=== PATIENT | female | born 1995 | race Caucasian/White ===

== ENCOUNTER 2020-12-08 13:29 | Inpatient (IN) | payer BC ==
[2020-12-08] MEDS ORDERED: Sodium Chloride 0.9% 10 ML Syringe FLUSH PRN (13:44)
[2020-12-08] MEDS ORDERED: Nalbuphine 10 MG/1 ML Vial IVPUSH PRN (13:44)
[2020-12-08] MEDS ORDERED: Oxytocin/Lactated Ringers 10 UNIT/1,000 ML BAG IV SCH ×2 (13:45)
[2020-12-08] MEDS: Lactated Ringers 1,000 ML IV SCH ×2 (14:23→17:38)
[2020-12-08] MEDS ORDERED: ePHEDrine 50 MG/ML SDV IVPUSH PRN (14:47)
[2020-12-08] MEDS ORDERED: Ondansetron 4 MG/2 ML SDV IVPUSH PRN (14:47)
[2020-12-08] MEDS ORDERED: fentaNYL 100 MCG/2 ML SDV EPIDUR PRN (14:47)
--- NOTE | 2020-12-08 14:50 | PCM.PREANE ---
Preanesthetic Assessment - Procedure Proposed Procedure: Epidural - Anesthesia/Transfusion/Family Hx Anesthesia History: Prior Anesthesia Without Reaction Family History of Anesthesia Reaction: No Transfusion History: No Prior Transfusion(s) Intubation History: Unknown - Review of Systems General: No Symptoms Pulmonary: No Symptoms Cardiovascular: No Symptoms Gastrointestinal: No Symptoms (GERD) Neurological: No Symptoms, Numbness (CTS bilaterally with /greater on the right.) Other: Reports: None - Physical Assessment NPO Status Date: 12/08/20 NPO Status Time: 09:30 Vital Signs: Last Vital Signs Temp 37.7 C 12/08/20 14:24 Pulse Resp 16 12/08/20 14:24 BP 114/63 12/08/20 14:24 Pulse Ox 99 12/08/20 14:24 Height: 1.63 m Weight: 92.079 kg ASA Class: 3 Mental Status: Alert & Oriented x3 Airway Class: Mallampati = 2 Dentition: Reports: Normal Dentition, Caries Thyro-Mental Finger Breadths: 3 Mouth Opening Finger Breadths: 3 ROM/Head Extension: Full Lungs: Clear to Auscultation, Normal Respiratory Effort Cardiovascular: Regular Rate, Regular Rhythm, No Murmurs - Lab Values: Laboratory Last Values WBC 13.21 K/mm3 (3.98-10.04) H 12/08/20 14:18 RBC 3.97 M/mm3 (3.98-5.22) L 12/08/20 14:18 Hgb 12.0 gm/dl (11.2-15.7) 12/08/20 14:18 Hct 36.4 % (34.1-44.9) 12/08/20 14:18 MCV 91.7 fl (79.4-94.8) 12/08/20 14:18 MCH 30.2 pg (25.6-32.2) 12/08/20 14:18 MCHC 33.0 g/dl (32.2-35.5) 12/08/20 14:18 RDW Std Deviation 43.0 fL (36.4-46.3) 12/08/20 14:18 Plt Count 224 K/mm3 (182-369) 12/08/20 14:18 MPV 11.1 fl (9.4-12.3) 12/08/20 14:18 Neut % (Auto) 77.2 % (34.0-71.1) H 12/08/20 14:18 Lymph % (Auto) 15.0 % (19.3-51.7) L 12/08/20 14:18 [place] % (Auto) 7.0 % (4.7-12.5) 12/08/20 14:18 Eos % (Auto) 0.2 (0.7-5.8) L 12/08/20 14:18 Baso % (Auto) 0.1 % (0.1-1.2) 12/08/20 14:18 Neut # (Auto) 10.20 K/mm3 (1.56-6.13) H 12/08/20 14:18 Lymph # (Auto) 1.98 K/mm3 (1.18-3.74) 12/08/20 14:18 [place] # (Auto) 0.93 K/mm3 (0.24-0.36) H 12/08/20 14:18 Eos # (Auto) 0.03 K/mm3 (0.04-0.36) L 12/08/20 14:18 Baso # (Auto) 0.01 K/mm3 (0.01-0.08) 12/08/20 14:18 Above labs reviewed and noted and within acceptable ranges to proceed with scheduled procedure. - Allergies Allergies/Adverse Reactions: Allergies Allergy/AdvReac Type Severity Reaction Status Date / Time No Known Allergies Allergy Verified 12/08/20 13:43 - Anesthesia Plan Pre-Op Medication Ordered: None - Acknowledgements Anesthesia Type Planned: Epidural Pt an Appropriate Candidate for the Planned Anesthesia: Yes Alternatives and Risks of Anesthesia Discussed w Pt/Guardian: Yes Pt/Guardian Understands and Agrees with Anesthesia Plan: Yes PreAnesthesia Questionnaire - HOME MEDS Home Medications: Home Meds Pnv No.95/Ferrous Fum/Folic AC [ Caplet] 1 tab PO DAILY 12/08/20 [History] - CURRENT (IN HOUSE) MEDS Current Meds: Current Medications Oxytocin/Lactated Ringer's (Pitocin In Lr 10 Units/1,000 Ml) 10 unit in 1,000 mls @ 12 mls/hr IV TITRATE SADIA; Protocol Oxytocin/Lactated Ringer's (Pitocin In Lr 10 Units/1,000 Ml) 10 unit in 1,000 mls @ 500 mls/hr IV .CONTINUOUS SADIA Lactated Ringer's (Ringers, Lactated) 1,000 mls @ 100 mls/hr IV ASDIRECTED SADIA Last Admin: 12/08/20 14:23 Dose: 100 mls/hr Documented by: Lidocaine HCl (Lidocaine 1% 50 Ml Mdv) 50 ml INJECT ONETIME ONE Stop: 12/08/20 18:01 Nalbuphine HCl (Nalbuphine 10 Mg/1 Ml Vial) 10 mg IVPUSH Q2H PRN PRN Reason: Pain Sodium Chloride (Sodium Chloride 0.9% 10 Ml Syringe) 10 ml FLUSH ASDIRECTED PRN PRN Reason: Keep Vein Open
[2020-12-08] MEDS ORDERED: Bupivacaine/fentaNYL/NS 100 ML Bag EPIDUR SCH (15:00)
--- NOTE | 2020-12-08 16:57 | PCM.LDHP ---
L&D History of Present Illness - General Date of Service: 12/08/20 Admit Problem/Dx: Patient Status Order with Admit Dx/Problem 12/08/20 13:44 Patient Status [ADT] Routine Admission Diagnosis/Problem Admission Diagnosis/Problem Source of Information: Patient History Limitations: Reports: No Limitations - History of Present Illness Introduction:: Patient is a 24 y/o at 39 6/7 wks. Patient had membranes swept in clinic earlier today. Several hours after noted LOF and returned to clinic where speculum exam did show pooling of fluid. Currently has been on L&D for a few hours and was agreeable to pitocin initiation given no significant contractions. Doing well otherwise - Related Data Allergies/Adverse Reactions: Allergies Allergy/AdvReac Type Severity Reaction Status Date / Time No Known Allergies Allergy Verified 12/08/20 13:43 Home Medications: Home Meds Pnv No.95/Ferrous Fum/Folic AC [ Caplet] 1 tab PO DAILY 12/08/20 [History] Past Medical History [employer] History: Reports: : 2 Para: 1 LMP (Approximate): - Infectious Disease History Infectious Disease History: Reports: C-Difficile Other Infectious Disease History: states she had C-DIFF early in - Past Surgical History HEENT Surgical History: Reports: Oral Surgery, Tonsillectomy Social & Family History - Family History Family Medical History: No Pertinent Family History - Tobacco Use Tobacco Use Status *Q: Former Tobacco User Years of Tobacco use: 5 Packs/Tins Daily: 0.5 Used Tobacco, but Quit: Yes Month/Year Tobacco Last Used: 2020 Second Hand Smoke Exposure: No - Caffeine Use Caffeine Use: Reports: None - Alcohol Use Alcohol Use History: No - Recreational Drug Use Recreational Drug Use: No H&P Review of Systems - Review of Systems: Review Of Systems: See Below General: Reports: No Symptoms Pulmonary: Reports: No Symptoms Cardiovascular: Reports: No Symptoms Gastrointestinal: Reports: No Symptoms Genitourinary: Reports: No Symptoms Musculoskeletal: Reports: No Symptoms Psychiatric: Reports: No Symptoms Neurological: Reports: No Symptoms Hematologic/Lymphatic: Reports: No Symptoms L&D Exam - Exam Exam: See Below - Vital Signs Vital Signs: Last Vital Signs Temp 37.7 C 12/08/20 14:24 Pulse Resp 16 12/08/20 14:24 BP 114/63 12/08/20 14:24 Pulse Ox 99 12/08/20 14:24 Weight: 92.079 kg - OB Specific Contraction Intensity: Mild Movement: Active Heart Tones: Present Heart Tones per Min: 120 Heart Rate (FHR) Variability: Moderate (6-25 bpm) Presentation: Vertex - Yadav Score Yadav Score Cervix Position: Midposition Yadav Score Consistency: Soft Yadav Score Effacement: >80% Yadav Score Dilation: 3-4 cm Yadav Score Infant's Station: -2 Yadav Score Total: 9 - Exam General: Alert, Oriented, Cooperative Lungs: Clear to Auscultation, Normal Respiratory Effort Cardiovascular: Regular Rate, Regular Rhythm GI/Abdominal Exam: Soft, Non-Tender Genitourinary: Normal external exam Extremities: Normal Inspection Skin: Warm, Dry, Intact - Patient Data Lab Results Last 24 hrs: Laboratory Results - last 24 hr 12/08/20 12/08/20 12/08/20 Range/Units 14:05 14:18 14:18 WBC 13.21 H (3.98-10.04) K/mm3 RBC 3.97 L (3.98-5.22) M/mm3 Hgb 12.0 (11.2-15.7) gm/dl Hct 36.4 (34.1-44.9) % MCV 91.7 (79.4-94.8) fl MCH 30.2 (25.6-32.2) pg MCHC 33.0 (32.2-35.5) g/dl RDW Std Deviation 43.0 (36.4-46.3) fL Plt Count 224 (182-369) K/mm3 MPV 11.1 (9.4-12.3) fl Neut % (Auto) 77.2 H (34.0-71.1) % Lymph % (Auto) 15.0 L (19.3-51.7) % [place] % (Auto) 7.0 (4.7-12.5) % Eos % (Auto) 0.2 L (0.7-5.8) Baso % (Auto) 0.1 (0.1-1.2) % Neut # (Auto) 10.20 H (1.56-6.13) K/mm3 Lymph # (Auto) 1.98 (1.18-3.74) K/mm3 [place] # (Auto) 0.93 H (0.24-0.36) K/mm3 Eos # (Auto) 0.03 L (0.04-0.36) K/mm3 Baso # (Auto) 0.01 (0.01-0.08) K/mm3 SARS-CoV-2 RNA (DAVI) Negative (NEGATIVE) Blood Type A POSITIVE Gel Antibody Screen Negative Result Diagrams: 12/08/20 14:18 - Problem List (1) 39 weeks gestation of SNOMED Code(s): 30365162 ICD Code: Z3A.39 - 39 WEEKS GESTATION OF Status: Acute Current Visit: Yes Problem List Initiated/Reviewed/Updated: Yes Orders Last 24hrs: Active Orders 24 hr Category Date Time Status Patient Status [ADT] Routine ADT 12/08/20 13:44 Active Activity as Tolerated [RC] PFP Care 12/08/20 13:44 Active Communication Order [RC] ASDIRECTED Care 12/08/20 13:44 Active Heart Tones [RC] ASDIRECTED Care 12/08/20 13:45 Active Notify Provider [RC] ASDIRECTED Care 12/08/20 14:47 Active Notify Provider [RC] PFP Care 12/08/20 13:44 Active Notify Provider [RC] PRN Care 12/08/20 13:44 Active Oxygen Therapy [RC] ASDIRECTED Care 12/08/20 14:47 Active Peripheral IV Care [RC] . DIRECTED Care 12/08/20 13:45 Active Pulse Oximetry [RC] ASDIRECTED Care 12/08/20 14:47 Active Pump Management, Intrathecal [RC] ASDIRECTED Care 12/08/20 13:46 Active Urinary Catheter Assessment [RC] ASDIRECTED Care 12/08/20 13:44 Active Vital Signs [RC] PER UNIT ROUTINE Care 12/08/20 13:44 Active Regular Diet [DIET] Diet 12/08/20 Lunch Active RAPID PLASMA REAGIN,RPR [CHEM] Routine Lab 12/08/20 14:18 Received Bupivacaine/fentaNYL/NS [fentaNYL/Bupivacaine/NS 2 MCG- Med 12/08/20 15:00 Active 0.125% 100 ML] 100 ml EPIDUR ASDIRECTED Lactated Ringers [Ringers, Lactated] 1,000 ml Med 12/08/20 13:45 Active IV ASDIRECTED Lidocaine 1% [Xylocaine 1%] Med 12/08/20 18:00 Once 50 ml INJECT ONETIME ONE Nalbuphine [Nubain] Med 12/08/20 13:44 Active 10 mg IVPUSH Q2H PRN Ondansetron [Zofran] Med 12/08/20 14:47 Active 4 mg IVPUSH ONETIME PRN Oxytocin/Lactated Ringers [Pitocin in LR 10 Units/1,000 Med 12/08/20 13:45 Active ML] 10 unit in 1,000 ml IV .CONTINUOUS Oxytocin/Lactated Ringers [Pitocin in LR 10 Units/1,000 Med 12/08/20 13:45 Active ML] 10 unit in 1,000 ml IV TITRATE Phenylephrine HCl In 0.9% NaCl [Phenylephrine 1 MG/10 Med 12/08/20 14:47 Active ML-NS] 0.1 mg IVPUSH Q10M PRN Sodium Chloride 0.9% [Saline Flush] Med 12/08/20 13:44 Active 10 ml FLUSH ASDIRECTED PRN ePHEDrine [ePHEDrine sulfate] Med 12/08/20 14:47 Active 5 mg IVPUSH ASDIRECTED PRN fentaNYL [Sublimaze] Med 12/08/20 14:47 Active 100 mcg EPIDUR Q3H PRN Electronic Heart Tones Ext w TOCO [WOMSER] Oth 12/08/20 13:44 Ordered Routine Electronic Heart Tones Internal [WOMSER] Per Unit Oth 12/08/20 13:44 Ordered Routine Peripheral IV Insertion Adult [OM.PC] Routine Oth 12/08/20 13:44 Ordered Resuscitation Status Routine Resus Stat 12/08/20 13:44 Ordered Medication Orders Ephedrine Sulfate (Ephedrine 50 Mg/Ml Sdv) 5 mg IVPUSH ASDIRECTED PRN PRN Reason: Hypotension Fentanyl (Fentanyl 100 Mcg/2 Ml Sdv) 100 mcg EPIDUR Q3H PRN PRN Reason: Pain Fentanyl/Bupivacaine HCl (Bupivacaine/Fentanyl/Ns 100 Ml Bag) 100 ml EPIDUR ASDIRECTED SADIA Oxytocin/Lactated Ringer's (Pitocin In Lr 10 Units/1,000 Ml) 10 unit in 1,000 mls @ 12 mls/hr IV TITRATE SADIA; Protocol Last Titration: 12/08/20 16:25 Dose: 4 munits/min, 24 mls/hr Documented by: Admin: 12/08/20 14:49 Dose: 2 munits/min, 12 mls/hr Documented by: PEDRO Oxytocin/Lactated Ringer's (Pitocin In Lr 10 Units/1,000 Ml) 10 unit in 1,000 mls @ 500 mls/hr IV .CONTINUOUS [facility] Lactated Ringer's (Ringers, Lactated) 1,000 mls @ 100 mls/hr IV ASDIRECTED [facility] Last Admin: 12/08/20 14:23 Dose: 100 mls/hr Documented by: PEDRO Lidocaine HCl (Lidocaine 1% 50 Ml Mdv) 50 ml INJECT ONETIME ONE Stop: 12/08/20 18:01 Miscellaneous Medication (Phenylephrine Hcl In 0.9% Nacl 1 Mg/10 Ml Syringe) 0.1 mg IVPUSH Q10M PRN PRN Reason: Hypotension Nalbuphine HCl (Nalbuphine 10 Mg/1 Ml Vial) 10 mg IVPUSH Q2H PRN PRN Reason: Pain Ondansetron HCl (Ondansetron 4 Mg/2 Ml Sdv) 4 mg IVPUSH ONETIME PRN PRN Reason: Nausea/Vomiting Sodium Chloride (Sodium Chloride 0.9% 10 Ml Syringe) 10 ml FLUSH ASDIRECTED PRN PRN Reason: Keep Vein Open Assessment/Plan Comment:: * Labs previously done * On pitocin for augmentation, Rupture of forebag done * GBS negative * Pain management per patient preference * anticipate
[2020-12-08] MEDS ORDERED: Lidocaine 1% 50 ML MDV INJECT ONE (18:00)
--- NOTE | 2020-12-08 19:53 | PCM.DEL ---
L & D Note - General Info Date of Service: 12/08/20 - Delivery Note Labor: Augmented by Oxytocin Cervical Ripening Method: Oxytocin Delivery Outcome: Livebirth Infant Delivery Method: Spontaneous Vaginal Delivery-Single Infant Delivery Mode: Spontaneous Presentation: Left Occiput Anterior (FARHAN) Nuchal Cord: None Anesthesia Type: None Amniotic Fluid Description: Clear Episiotomy Type: None Laceration: None Placenta: Intact, Spontaneous Cord: 3 Vessels Estimated Blood Loss: 100 : Bulb Syringe, Stimulated, Warmed, [place] Used, Warmer Used Delivery Comments (Free Text/Narrative):: Patient found to be complete and began pushing. With maternal pushing effort head delivered from FARHAN presentation. No nuchal cord present. With gentle downward traction the shoulders and body delivered. placed on maternal abdomen. Cord clamped and cut. Cord blood obtained. Placenta allowed time to separate and expelled intact. Inspection of perineum showed no lacerations - General Info Date of Service: 12/08/20 - Patient Data Vitals - Most Recent: Last Vital Signs Temp 37.7 C 12/08/20 14:24 Pulse Resp 16 12/08/20 14:24 BP 114/63 12/08/20 14:24 Pulse Ox 99 12/08/20 14:24 Weight - Most Recent: 92.079 kg - Problem List & Annotations (1) Vaginal delivery SNOMED Code(s): 058857994 Code(s): O80 - ENCOUNTER FOR FULL-TERM UNCOMPLICATED DELIVERY Status: Acute Current Visit: Yes (2) 39 weeks gestation of SNOMED Code(s): 14761618 Code(s): Z3A.39 - 39 WEEKS GESTATION OF Status: Acute Current Visit: Yes - Problem List Review Problem List Initiated/Reviewed/Updated: Yes - My Orders Last 24 Hours: My Active Orders 12/08/20 Lunch Regular Diet [DIET] 12/08/20 13:44 Patient Status [ADT] Routine Activity as Tolerated [RC] PFP Communication Order [RC] ASDIRECTED Notify Provider [RC] PFP Notify Provider [RC] PRN Urinary Catheter Assessment [RC] ASDIRECTED Vital Signs [RC] PER UNIT ROUTINE Nalbuphine [Nubain] 10 mg IVPUSH Q2H PRN Sodium Chloride 0.9% [Saline Flush] 10 ml FLUSH ASDIRECTED PRN Electronic Heart Tones Ext w TOCO [WOMSER] Routine Electronic Heart Tones Internal [WOMSER] Per Unit Routine Peripheral IV Insertion Adult [OM.PC] Routine Resuscitation Status Routine 12/08/20 13:45 Heart Tones [RC] ASDIRECTED Peripheral IV Care [RC] . DIRECTED Lactated Ringers [Ringers, Lactated] 1,000 ml IV ASDIRECTED Oxytocin/Lactated Ringers [Pitocin in LR 10 Units/1,000 ML] 10 unit in 1,000 ml IV .CONTINUOUS Oxytocin/Lactated Ringers [Pitocin in LR 10 Units/1,000 ML] 10 unit in 1,000 ml IV TITRATE 12/08/20 13:46 Pump Management, Intrathecal [RC] ASDIRECTED 12/08/20 14:18 RAPID PLASMA REAGIN,RPR [CHEM] Routine - Assessment Assessment:: PPD#0 - Plan Plan:: * Routine cares * Breast feeding * Discharge home in 1-2 days
[2020-12-08] MEDS ORDERED: Ibuprofen 600 MG Tab PO PRN (20:18)
[2020-12-08] MEDS ORDERED: Witch Hazel Medicated Pads 40/Jar TOP PRN (20:18)
[2020-12-08] MEDS ORDERED: Benzocaine/Menthol 20%-0.5% Spray 78 GM Cannister TOP PRN (20:18)
[2020-12-08] MEDS ORDERED: Docusate Sodium 100 MG Cap PO PRN (20:18)
[2020-12-08] MEDS ORDERED: Acetaminophen 325 MG Tab PO PRN (20:18)
--- NOTE | 2020-12-09 07:15 | PCM.PNPP ---
- General Info Date of Service: 12/09/20 Functional Status: Reports: Pain Controlled, Tolerating Diet, Ambulating, Urinating - Review of Systems General: Reports: No Symptoms Pulmonary: Reports: No Symptoms Cardiovascular: Reports: No Symptoms Gastrointestinal: Reports: No Symptoms Genitourinary: Reports: No Symptoms Musculoskeletal: Reports: No Symptoms - General Info Date of Service: 12/09/20 - Patient Data Vital Signs - Most Recent: Last Vital Signs Temp 36.2 C 12/09/20 01:08 Pulse 89 12/09/20 01:08 Resp 14 12/09/20 01:08 BP 118/97 H 12/09/20 01:08 Pulse Ox 95 12/09/20 01:08 Weight - Most Recent: 92.079 kg I&O - Last 24 Hours: Intake & Output 12/08/20 12/09/20 12/09/20 22:59 06:59 14:59 Intake Total 2500 Balance 2500 Lab Results - Last 24 Hours: Laboratory Results - last 24 hr 12/08/20 12/08/20 12/08/20 Range/Units 14:05 14:18 14:18 WBC 13.21 H (3.98-10.04) K/mm3 RBC 3.97 L (3.98-5.22) M/mm3 Hgb 12.0 (11.2-15.7) gm/dl Hct 36.4 (34.1-44.9) % MCV 91.7 (79.4-94.8) fl MCH 30.2 (25.6-32.2) pg MCHC 33.0 (32.2-35.5) g/dl RDW Std Deviation 43.0 (36.4-46.3) fL Plt Count 224 (182-369) K/mm3 MPV 11.1 (9.4-12.3) fl Neut % (Auto) 77.2 H (34.0-71.1) % Lymph % (Auto) 15.0 L (19.3-51.7) % [place] % (Auto) 7.0 (4.7-12.5) % Eos % (Auto) 0.2 L (0.7-5.8) Baso % (Auto) 0.1 (0.1-1.2) % Neut # (Auto) 10.20 H (1.56-6.13) K/mm3 Lymph # (Auto) 1.98 (1.18-3.74) K/mm3 [place] # (Auto) 0.93 H (0.24-0.36) K/mm3 Eos # (Auto) 0.03 L (0.04-0.36) K/mm3 Baso # (Auto) 0.01 (0.01-0.08) K/mm3 RPR Non-reactive (NONREACTIVE) SARS-CoV-2 RNA (DAVI) Negative (NEGATIVE) Blood Type Gel Antibody Screen 12/08/20 Range/Units 14:18 WBC (3.98-10.04) K/mm3 RBC (3.98-5.22) M/mm3 Hgb (11.2-15.7) gm/dl Hct (34.1-44.9) % MCV (79.4-94.8) fl MCH (25.6-32.2) pg MCHC (32.2-35.5) g/dl RDW Std Deviation (36.4-46.3) fL Plt Count (182-369) K/mm3 MPV (9.4-12.3) fl Neut % (Auto) (34.0-71.1) % Lymph % (Auto) (19.3-51.7) % [place] % (Auto) (4.7-12.5) % Eos % (Auto) (0.7-5.8) Baso % (Auto) (0.1-1.2) % Neut # (Auto) (1.56-6.13) K/mm3 Lymph # (Auto) (1.18-3.74) K/mm3 [place] # (Auto) (0.24-0.36) K/mm3 Eos # (Auto) (0.04-0.36) K/mm3 Baso # (Auto) (0.01-0.08) K/mm3 RPR (NONREACTIVE) SARS-CoV-2 RNA (DAVI) (NEGATIVE) Blood Type A POSITIVE Gel Antibody Screen Negative Med Orders - Current: Current Medications Acetaminophen (Acetaminophen 325 Mg Tab) 650 mg PO Q4H PRN PRN Reason: mild pain or fever Benzocaine/Menthol (Benzocaine/Menthol 20%-0.5% [place] 78 Gm Cannister) 0 gm TOP ASDIRECTED PRN PRN Reason: Perineal Comfort Measure Last Admin: 12/08/20 21:06 Dose: 1 canister Documented by: Docusate Sodium (Docusate Sodium 100 Mg Cap) 100 mg PO BID PRN PRN Reason: Constipation Ibuprofen (Ibuprofen 600 Mg Tab) 600 mg PO Q6H PRN PRN Reason: Mild pain or fever Last Admin: 12/08/20 21:07 Dose: 600 mg Documented by: Ara Carmona (Ara Carmona Medicated Pads 40/Jar) 1 pad TOP ASDIRECTED PRN PRN Reason: Perineal Comfort Measure Last Admin: 12/08/20 21:06 Dose: 1 tub Documented by: Discontinued Medications Ephedrine Sulfate (Ephedrine 50 Mg/Ml Sdv) 5 mg IVPUSH ASDIRECTED PRN PRN Reason: Hypotension Fentanyl (Fentanyl 100 Mcg/2 Ml Sdv) 100 mcg EPIDUR Q3H PRN PRN Reason: Pain Last Admin: 12/08/20 18:31 Dose: 100 mcg Documented by: Fentanyl/Bupivacaine HCl (Bupivacaine/Fentanyl/Ns 100 Ml Bag) 100 ml EPIDUR ASDIRECTED SADIA Last Admin: 12/08/20 18:30 Dose: 100 ml Documented by: Oxytocin/Lactated Ringer's (Pitocin In Lr 10 Units/1,000 Ml) 10 unit in 1,000 mls @ 12 mls/hr IV TITRATE SADIA; Protocol Last Titration: 12/08/20 17:55 Dose: 8 munits/min, 48 mls/hr Documented by: Oxytocin/Lactated Ringer's (Pitocin In Lr 10 Units/1,000 Ml) 10 unit in 1,000 mls @ 500 mls/hr IV .CONTINUOUS SADIA Lactated Ringer's (Ringers, Lactated) 1,000 mls @ 100 mls/hr IV ASDIRECTED SADIA Last Admin: 12/08/20 17:38 Dose: 100 mls/hr Documented by: Lidocaine HCl (Lidocaine 1% 50 Ml Mdv) 50 ml INJECT ONETIME ONE Stop: 12/08/20 18:01 Last Admin: 12/09/20 01:22 Dose: Not Given Documented by: Miscellaneous Medication (Phenylephrine Hcl In 0.9% Nacl 1 Mg/10 Ml Syringe) 0.1 mg IVPUSH Q10M PRN PRN Reason: Hypotension Nalbuphine HCl (Nalbuphine 10 Mg/1 Ml Vial) 10 mg IVPUSH Q2H PRN PRN Reason: Pain Ondansetron HCl (Ondansetron 4 Mg/2 Ml Sdv) 4 mg IVPUSH ONETIME PRN PRN Reason: Nausea/Vomiting Sodium Chloride (Sodium Chloride 0.9% 10 Ml Syringe) 10 ml FLUSH ASDIRECTED PRN PRN Reason: Keep Vein Open - Infant Interaction Infant Disposition, : [place] in Room with Family Interaction: Holding Infant Feeding: Breastfed Infant; Nursed Well Support Person: - Recovery Exam Fundal Tone: Firm Fundal Level: 1 Fingerbreadths Below Umbilicus Fundal Placement: Midline Lochia Amount: Small Lochia Color: Rubra/Red Perineum Description: Intact, Minimal Bruising/Swelling Bladder Status: Voiding - Exam General: Alert, Oriented, Cooperative GI/Abdominal Exam: Soft, Non-Tender - Problem List & Annotations (1) Vaginal delivery SNOMED Code(s): 847832365 Code(s): O80 - ENCOUNTER FOR FULL-TERM UNCOMPLICATED DELIVERY Status: Acute Current Visit: Yes (2) 39 weeks gestation of SNOMED Code(s): 49644111 Code(s): Z3A.39 - 39 WEEKS GESTATION OF Status: Acute Current Visit: Yes - Problem List Review Problem List Initiated/Reviewed/Updated: Yes - My Orders Last 24 Hours: My Active Orders 12/08/20 13:44 Resuscitation Status Routine 12/08/20 Dinner Regular Diet [DIET] 12/08/20 20:18 Acetaminophen [TylenoL] 650 mg PO Q4H PRN Benzocaine/Menthol [Dermoplast Pain Relief 20%-0.5% [place]] See Dose Instructions TOP ASDIRECTED PRN Docusate Sodium [Colace] 100 mg PO BID PRN Ibuprofen [Motrin] 600 mg PO Q6H PRN witch Immanuel [Tucks] 1 pad TOP ASDIRECTED PRN Heat Therapy [OM.PC] PRN 12/08/20 20:18 Activity as Tolerated [RC] PER UNIT ROUTINE Vital Signs [RC] 03,09,15,21 Assess Lochia [WOMSER] Per Unit Routine Assess Uterine Involution [WOMSER] Per Unit Routine Breast Pump [WOMSER] Per Unit Routine Ice Therapy [OM.PC] Per Unit Routine Perineal Care [OM.PC] Per Unit Routine Peripheral IV Discontinue [OM.PC] Routine Sitz Bath [OM.PC] Per Unit Routine 12/09/20 20:18 Heat Therapy [OM.PC] PRN - Assessment Assessment:: PPD#1 - Plan Plan:: * Routine cares * Breast feeding * Discharge home today
--- NOTE | 2020-12-09 07:18 | PCM.DCSUM1 ---
Discharge Summary - Discharge Data Discharge Date: 12/09/20 Discharge Disposition: Home, Self-Care 01 Condition: Good - Referral to Home Health Primary Care Physician: PCP None - Discharge Diagnosis/Problem(s) (1) Vaginal delivery SNOMED Code(s): 295887605 ICD Code: O80 - ENCOUNTER FOR FULL-TERM UNCOMPLICATED DELIVERY Status: Acute Current Visit: Yes (2) 39 weeks gestation of SNOMED Code(s): 53178106 ICD Code: Z3A.39 - 39 WEEKS GESTATION OF Status: Acute Current Visit: Yes - Patient Summary/Data Complications: None Consults: None Recommended Follow-up Testing/Procedures: Follow up in 3 weeks for check Hospital Course: 24 y/o at 39 6/7 wks who presented with SROM. Was augmented with pitocin and had rupture of forebag. Progressed well to complete dilation and underwent an uncomplicated . See delivery note. did well and was discharged home on PPD#1 - Patient Instructions Diet: Regular Diet as Tolerated Activity: As Tolerated Activity, Other: Pelvic rest for 6 weeks Driving: May Drive Today Showering/Bathing: May Shower Showering/Bathing, Other: May Bathe Notify Provider of: Fever, Increased Pain, Swelling and Redness, Drainage, Nausea and/or Vomiting - Discharge Plan *PRESCRIPTION DRUG MONITORING PROGRAM REVIEWED*: No *COPY OF PRESCRIPTION DRUG MONITORING REPORT IN PATIENT JOEL: No Home Medications: Home Meds Pnv No.95/Ferrous Fum/Folic AC [ Caplet] 1 tab PO DAILY 12/08/20 [History] Docusate Sodium [Colace] 100 mg PO BID PRN cap 12/09/20 [Rx] Ibuprofen [Motrin] 600 mg PO Q6H PRN tablet 12/09/20 [Rx] Referrals: Domi Martinez MD [Physician] - (3 weeks for check ) - Discharge Summary/Plan Comment DC Time >30 min.: No Total # of Minutes for Discharge Time: 15 - Patient Data Vitals - Most Recent: Last Vital Signs Temp 36.2 C 12/09/20 01:08 Pulse 89 12/09/20 01:08 Resp 14 12/09/20 01:08 BP 118/97 H 12/09/20 01:08 Pulse Ox 95 12/09/20 01:08 Weight - Most Recent: 92.079 kg I&O - Last 24 hours: Intake & Output 12/08/20 12/09/20 12/09/20 22:59 06:59 14:59 Intake Total 2500 Balance 2500 Lab Results - Last 24 hrs: Laboratory Results - last 24 hr 12/08/20 12/08/20 12/08/20 Range/Units 14:05 14:18 14:18 WBC 13.21 H (3.98-10.04) K/mm3 RBC 3.97 L (3.98-5.22) M/mm3 Hgb 12.0 (11.2-15.7) gm/dl Hct 36.4 (34.1-44.9) % MCV 91.7 (79.4-94.8) fl MCH 30.2 (25.6-32.2) pg MCHC 33.0 (32.2-35.5) g/dl RDW Std Deviation 43.0 (36.4-46.3) fL Plt Count 224 (182-369) K/mm3 MPV 11.1 (9.4-12.3) fl Neut % (Auto) 77.2 H (34.0-71.1) % Lymph % (Auto) 15.0 L (19.3-51.7) % Parker % (Auto) 7.0 (4.7-12.5) % Eos % (Auto) 0.2 L (0.7-5.8) Baso % (Auto) 0.1 (0.1-1.2) % Neut # (Auto) 10.20 H (1.56-6.13) K/mm3 Lymph # (Auto) 1.98 (1.18-3.74) K/mm3 Parker # (Auto) 0.93 H (0.24-0.36) K/mm3 Eos # (Auto) 0.03 L (0.04-0.36) K/mm3 Baso # (Auto) 0.01 (0.01-0.08) K/mm3 RPR Non-reactive (NONREACTIVE) SARS-CoV-2 RNA (DAVI) Negative (NEGATIVE) Blood Type Gel Antibody Screen 12/08/20 Range/Units 14:18 WBC (3.98-10.04) K/mm3 RBC (3.98-5.22) M/mm3 Hgb (11.2-15.7) gm/dl Hct (34.1-44.9) % MCV (79.4-94.8) fl MCH (25.6-32.2) pg MCHC (32.2-35.5) g/dl RDW Std Deviation (36.4-46.3) fL Plt Count (182-369) K/mm3 MPV (9.4-12.3) fl Neut % (Auto) (34.0-71.1) % Lymph % (Auto) (19.3-51.7) % Parker % (Auto) (4.7-12.5) % Eos % (Auto) (0.7-5.8) Baso % (Auto) (0.1-1.2) % Neut # (Auto) (1.56-6.13) K/mm3 Lymph # (Auto) (1.18-3.74) K/mm3 Parker # (Auto) (0.24-0.36) K/mm3 Eos # (Auto) (0.04-0.36) K/mm3 Baso # (Auto) (0.01-0.08) K/mm3 RPR (NONREACTIVE) SARS-CoV-2 RNA (DAVI) (NEGATIVE) Blood Type A POSITIVE Gel Antibody Screen Negative Med Orders - Current: Current Medications Acetaminophen (Acetaminophen 325 Mg Tab) 650 mg PO Q4H PRN PRN Reason: mild pain or fever Benzocaine/Menthol (Benzocaine/Menthol 20%-0.5% [place] 78 Gm Cannister) 0 gm TOP ASDIRECTED PRN PRN Reason: Perineal Comfort Measure Last Admin: 12/08/20 21:06 Dose: 1 canister Documented by: Docusate Sodium (Docusate Sodium 100 Mg Cap) 100 mg PO BID PRN PRN Reason: Constipation Ibuprofen (Ibuprofen 600 Mg Tab) 600 mg PO Q6H PRN PRN Reason: Mild pain or fever Last Admin: 12/08/20 21:07 Dose: 600 mg Documented by: Ara Carmona (Ara Carmona Medicated Pads 40/Jar) 1 pad TOP ASDIRECTED PRN PRN Reason: Perineal Comfort Measure Last Admin: 12/08/20 21:06 Dose: 1 tub Documented by: Discontinued Medications Ephedrine Sulfate (Ephedrine 50 Mg/Ml Sdv) 5 mg IVPUSH ASDIRECTED PRN PRN Reason: Hypotension Fentanyl (Fentanyl 100 Mcg/2 Ml Sdv) 100 mcg EPIDUR Q3H PRN PRN Reason: Pain Last Admin: 12/08/20 18:31 Dose: 100 mcg Documented by: Fentanyl/Bupivacaine HCl (Bupivacaine/Fentanyl/Ns 100 Ml Bag) 100 ml EPIDUR ASDIRECTED SADIA Last Admin: 12/08/20 18:30 Dose: 100 ml Documented by: Oxytocin/Lactated Ringer's (Pitocin In Lr 10 Units/1,000 Ml) 10 unit in 1,000 mls @ 12 mls/hr IV TITRATE SADIA; Protocol Last Titration: 12/08/20 17:55 Dose: 8 munits/min, 48 mls/hr Documented by: Oxytocin/Lactated Ringer's (Pitocin In Lr 10 Units/1,000 Ml) 10 unit in 1,000 mls @ 500 mls/hr IV .CONTINUOUS SADIA Lactated Ringer's (Ringers, Lactated) 1,000 mls @ 100 mls/hr IV ASDIRECTED [facility] Last Admin: 12/08/20 17:38 Dose: 100 mls/hr Documented by: Lidocaine HCl (Lidocaine 1% 50 Ml Mdv) 50 ml INJECT ONETIME ONE Stop: 12/08/20 18:01 Last Admin: 12/09/20 01:22 Dose: Not Given Documented by: Miscellaneous Medication (Phenylephrine Hcl In 0.9% Nacl 1 Mg/10 Ml Syringe) 0.1 mg IVPUSH Q10M PRN PRN Reason: Hypotension Nalbuphine HCl (Nalbuphine 10 Mg/1 Ml Vial) 10 mg IVPUSH Q2H PRN PRN Reason: Pain Ondansetron HCl (Ondansetron 4 Mg/2 Ml Sdv) 4 mg IVPUSH ONETIME PRN PRN Reason: Nausea/Vomiting Sodium Chloride (Sodium Chloride 0.9% 10 Ml Syringe) 10 ml FLUSH ASDIRECTED PRN PRN Reason: Keep Vein Open
== END 2020-12-09 20:25 | disposition home or self-care (01) | DRG 560 ==
LOC: JD.OB 13:29 → OBSVTOIN 19:30 → JD.OB 19:31
PROVIDERS: ADMIT Obstetrics & Gynecology; ATTEND Obstetrics & Gynecology
PROC: 3E033VJ Introduction of Other Hormone into Peripheral Vein, Percutaneous Approach (ICD-10-PCS; principal; 2020-12-08)
PROC: 10E0XZZ Delivery of Products of Conception, External Approach (ICD-10-PCS; 2020-12-08)
PROC: 10907ZC Drainage of Amniotic Fluid, Therapeutic from Products of Conception, Via Natural or Artificial Opening (ICD-10-PCS; 2020-12-08)
PROC: 3E0P7VZ Introduction of Hormone into Female Reproductive, Via Natural or Artificial Opening (ICD-10-PCS; 2020-12-08)
PROC: 3E0R3BZ Introduction of Anesthetic Agent into Spinal Canal, Percutaneous Approach (ICD-10-PCS; 2020-12-08)
DX: O80 Encounter for full-term uncomplicated delivery (principal); Z3A.39 39 weeks gestation of pregnancy; Z37.0 Single live birth; Z20.822 Contact with and (suspected) exposure to COVID-19
CPT/HCPCS: 36415; 59025; 59409; 85025; 86592; 86850; 86900; 86901; A9270-GY; J2590; J3010; J7120; U0002

== ENCOUNTER 2024-06-21 13:31 | Inpatient (IN) | payer BC ==
[2024-06-21] MEDS ORDERED: Lidocaine 1% 50 ML MDV INJECT PRN (13:36)
[2024-06-21] MEDS ORDERED: Ondansetron 4 MG/2 ML SDV IVPUSH PRN ×2 (13:36→22:06)
[2024-06-21] MEDS ORDERED: Nalbuphine 10 MG/1 ML Vial IVPUSH PRN (13:36)
[2024-06-21] MEDS: Ampicillin 2 GM in Sodium Chloride 0.9% 100 ML IV ONE (13:58)
[2024-06-21 14:07] LABS: BASOPHILS PERCENT AUTO 0.1 % (0.0-1.0); EOSINOPHILS PERCENT AUTO 0.1 % (0.0-6.0); HEMATOCRIT 38.6 % (37.0-47.0); IMMATURE GRAN ABSOLUTE AUTO 0.07 K/mm3 (0.00-0.05); IMMATURE GRAN PERCENT AUTO 0.5 % (0.0-0.4); LYMPHOCYTES ABSOLUTE AUTO 1.9 K/mm3 (1.0-4.8); LYMPHOCYTES PERCENT AUTO 12.4 % (24.0-44.0); MEAN CORPUSCULAR HEMOGLOBIN 30.4 pg (28.0-32.0); MEAN CORPUSCULAR HGB CONC 33.7 g/dl (32.0-36.0); MEAN CORPUSCULAR VOLUME 90.2 fl (83.0-99.0); MEAN PLATELET VOLUME 10.9 fl (9.4-12.3); MONOCYTES ABSOLUTE AUTO 0.7 K/mm3 (0.0-0.8); MONOCYTES PERCENT AUTO 4.4 % (0.0-8.0); NEUTROPHILS ABSOLUTE AUTO 12.7 K/mm3 (1.8-7.7); NEUTROPHILS PERCENT AUTO 82.5 % (41.0-71.0); PLATELET COUNT,PLT 184 K/mm3 (150-400); RED BLOOD CELL COUNT 4.28 M/mm3 (4.10-5.30); WHITE BLOOD CELL COUNT,WBC 15.38 K/mm3 (3.9-11.3)
[2024-06-21] MEDS ORDERED: diphenhydrAMINE 50 MG/ML SDV IVPUSH PRN ×2 (14:17→23:52)
[2024-06-21] MEDS: fentaNYL 100 MCG/2 ML SDV EPIDUR PRN (14:26)
[2024-06-21] MEDS: Bupivacaine/fentaNYL/NS 100 ML Bag EPIDUR PRN (14:28)
[2024-06-21] MEDS: Lactated Ringers 1,000 ML IV SCH (14:28)
[2024-06-21] MEDS: ePHEDrine 50 MG/ML SDV IVPUSH PRN (15:06)
[2024-06-21] MEDS: Ampicillin 1 GM in Sodium Chloride 0.9% 100 ML IV SCH (17:48)
[2024-06-21] MEDS ORDERED: Tranexamic Acid 1,000 MG/10 ML Vial ONE (18:09)
[2024-06-21] MEDS: Oxytocin/0.9 % Sodium Chloride 30 UNIT/500 ML BAG IV SCH ×2 (18:19→21:30)
[2024-06-21] MEDS ORDERED: ceFAZolin 2 GM in Sodium Chloride 0.9% 50 ML IV ONE (20:35)
[2024-06-21] MEDS ORDERED: Sodium Chloride 0.9% 10 ML Syringe FLUSH PRN (20:35)
[2024-06-21] MEDS ORDERED: Ondansetron 4 MG/2 ML SDV ONE (20:38)
[2024-06-21] MEDS ORDERED: Phenylephrine 1% 10 MG/ML SDV ONE (20:38)
[2024-06-21] MEDS ORDERED: Lidocaine 2% with EPINEPHrine 1:200,000 20 ML SDV ONE (20:38)
[2024-06-21] MEDS ORDERED: dexmedeTOMIDine HCl 200 MCG/2 ML SDV ONE (20:38)
[2024-06-21] MEDS ORDERED: Sodium Chloride 0.9% 100 ML ONE (20:39)
[2024-06-21] MEDS: Metoclopramide 10 MG/2 ML SDV IVPUSH ONE (20:55)
[2024-06-21] MEDS: Azithromycin 500 MG in Sodium Chloride 0.9% 250 ML IV ONE (20:55)
[2024-06-21] MEDS: Citric Acid/Sodium Citrate Solution 30 ML Cup PO ONE (20:55)
[2024-06-21] MEDS ORDERED: ceFAZolin 2 GM Vial ONE (20:59)
[2024-06-21] MEDS ORDERED: Sodium Chloride 0.9% 10 ML Syringe FLUSH SCH (21:00)
[2024-06-21] MEDS ORDERED: Methylergonovine 0.2 MG/1 ML Amp ONE (21:13)
[2024-06-21] MEDS ORDERED: Dexamethasone 4 MG/ML SDV ONE (21:25)
[2024-06-21] MEDS ORDERED: Sodium Chloride 0.9% 50 ML SDV ONE (21:26)
[2024-06-21] MEDS ORDERED: Ropivacaine 0.5% 5 MG/ML 30 ML SDV ONE (21:26)
[2024-06-21] MEDS ORDERED: Ketorolac 30 MG/ML SDV ONE (21:27)
[2024-06-21] MEDS ORDERED: Morphine PF 10 MG/10 ML SDV ONE (21:33)
[2024-06-21] MEDS ORDERED: fentaNYL 100 MCG/2 ML SDV IVPUSH PRN (22:06)
[2024-06-21] MEDS ORDERED: Meperidine 50 MG/ML Vial IVPUSH PRN (22:06)
[2024-06-21] MEDS ORDERED: Ondansetron 4 MG/2 ML SDV IV PRN (23:52)
[2024-06-21] MEDS ORDERED: Ibuprofen 600 MG Tab PO SCH (23:52)
[2024-06-21] MEDS ORDERED: Naloxone 0.4 MG/ML SDV IVPUSH PRN (23:52)
[2024-06-21] MEDS ORDERED: ePHEDrine 50 MG/ML SDV IVPUSH PRN (23:52)
[2024-06-21] MEDS ORDERED: Docusate Sodium 100 MG Cap PO PRN (23:52)
[2024-06-21] MEDS ORDERED: Acetaminophen 325 MG Tab PO PRN (23:52)
[2024-06-21] MEDS ORDERED: oxyCODONE 5 MG Tab PO PRN (23:52)
[2024-06-22] MEDS: Dextrose 5%-Lactated Ringers 1,000 ML IV SCH (00:38)
[2024-06-22] MEDS: Ketorolac 30 MG/ML SDV IVPUSH SCH ×2 (05:06→11:11)
[2024-06-22] MEDS: diphenhydrAMINE 50 MG/ML SDV IVPUSH PRN (07:59)
[2024-06-22 10:14] LABS: HEMATOCRIT 34.1 % (37.0-47.0); MEAN CORPUSCULAR HEMOGLOBIN 30.8 pg (28.0-32.0); MEAN CORPUSCULAR HGB CONC 33.7 g/dl (32.0-36.0); MEAN CORPUSCULAR VOLUME 91.4 fl (83.0-99.0); PLATELET COUNT,PLT 175 K/mm3 (150-400); RED BLOOD CELL COUNT 3.73 M/mm3 (4.10-5.30); WHITE BLOOD CELL COUNT,WBC 22.34 K/mm3 (3.9-11.3)
[2024-06-22 10:15] LABS: HEMOGLOBIN 11.5 gm/dl (12.0-16.0)
[2024-06-22] MEDS: Ibuprofen 600 MG Tab PO SCH (18:28)
== END 2024-06-23 12:30 | disposition home or self-care (01) | DRG 540 ==
LOC: JD.OBCHECK 13:31 → JD.OB 13:32 → JD.OBCHECK 13:36 → OBSVTOIN 21:10 → JD.OB 21:11
PROVIDERS: ADMIT Obstetrics & Gynecology; ATTEND Obstetrics & Gynecology
PROC: 10D00Z1 Extraction of Products of Conception, Low, Open Approach (ICD-10-PCS; principal; 2024-06-21 21:00)
DX: O48.0 Post-term pregnancy (principal); O34.211 Maternal care for low transverse scar from previous cesarean delivery; O99.824 Streptococcus B carrier state complicating childbirth; O64.0XX0 Obstructed labor due to incomplete rotation of fetal head, not applicable or unspecified; O62.2 Other uterine inertia; Z3A.40 40 weeks gestation of pregnancy; Z37.0 Single live birth; Z90.49 Acquired absence of other specified parts of digestive tract; Z98.890 Other specified postprocedural states
CPT/HCPCS: 36415; 51701; 59025; 59409; 85025; 85027; 86592; 86850; 86900; 86901; A9270-GY; J0290; J0456; J0690; J1100; J1200; J1885; J2210; J2274; J2371; J2405; J2765; J2795; J3010; J3490; J7120; J7121; J7999